=== PATIENT | female | born 1980 | race Caucasian/White ===

== ENCOUNTER 2018-04-04 13:27 | Inpatient (IN) | payer OTHER ==
[~2018-04-04] VITALS: Ht 160 cm; Wt 73.0 kg
[2018-04-07] MEDS ORDERED: OXYTOCIN 30U/ 0.9% NaCL 500ML 500 ML IV ONE (20:46)
[2018-04-07] MEDS: D5%-LACTATED RINGERS 1,000 ML IV SCH (20:46)
[2018-04-07] MEDS ORDERED: OXYTOCIN 30U/ 0.9% NaCL 500ML 500 ML IV PRN (20:46)
[2018-04-07] MEDS ORDERED: PENICILLIN GK 5,000,000 UNITS in DEXTROSE 5% 100 ML IVPB ONE (21:00)
[2018-04-07] MEDS ORDERED: TERBUTALINE 1 MG/ML, 1ML IVPush PRN (21:00)
[2018-04-07] MEDS ORDERED: ONDANSETRON 2MG/ML, 2ML IVPush PRN (21:00)
[2018-04-07] MEDS ORDERED: MISOPROSTOL 25 MCG TABLET VG PRN (21:00)
[2018-04-07] MEDS ORDERED: CALCIUM CARBONATE 500 MG TAB.CHEW PO PRN (21:00)
[2018-04-07] MEDS ORDERED: FENTANYL PF 100 MCG/2ML IV PRN (21:00)
[2018-04-07 21:20] LABS: BASOPHILS # (AUTO) 0.03 x10^3/uL (0-0.1); BASOPHILS % (AUTO) 0 % (0-1); EOSINOPHILS # (AUTO) 0.03 x10^3/uL (0-0.4); EOSINOPHILS % (AUTO) 0 % (1-7); LYMPHOCYTES # (AUTO) 2.14 x10^3/uL (1-3.4); LYMPHOCYTES % (AUTO) 19 % (22-44); MD NO; MEAN CORPUSCULAR HEMOGLOBIN 32.4 pg (27.0-34.8); MEAN CORPUSCULAR HGB CONC 34.5 g/dL (32.4-35.8); MONOCYTES # (AUTO) 1.01 x10^3/uL (0.2-0.8); MONOCYTES % (AUTO) 9 % (2-9); NEUTROPHILS # (AUTO) 8.31 x10^3/uL (1.8-6.8); NEUTROPHILS % (AUTO) 72 % (42-75); PLATELET COUNT 147 x10^3/uL (130-400); RED BLOOD COUNT 4.22 x10^6/uL (3.82-5.3); RED CELL DISTRIBUTION WIDTH 13.1 % (9.6-15.2)
[2018-04-07] MEDS: LACTATED RINGERS 1,000 ML IV SCH (21:29)
[2018-04-07] MEDS ORDERED: MISOPROSTOL 25 MCG TABLET ONE (22:04)
[2018-04-08] MEDS ORDERED: NEWBORN KIT ONE (01:28)
[2018-04-08] MEDS ORDERED: FENTANYL PF 100 MCG/2ML ONE ×5 (01:37→18:11)
[2018-04-08] MEDS: FENTANYL PF 100 MCG/2ML IVPush PRN ×2 (01:49→18:16)
[2018-04-08] MEDS: PENICILLIN GK 2,500,000 UNITS in DEXTROSE 5% 100 ML IVPB SCH ×6 (01:50→21:00)
[2018-04-08] MEDS ORDERED: FENTANYL/BUPIV./NS/PF 250 ML EPIDCONT SCH (01:57)
[2018-04-08] MEDS ORDERED: LACTATED RINGERS 1,000 ML IVBOLUS PRN (02:00)
[2018-04-08] MEDS ORDERED: FENTANYL PF 500 MCG, BUPIVACAINE/PF 0.5%, 30ML 62.5 ML in SODIUM CHLORIDE 0.9% 177.5 ML EPIDCONT SCH (02:30)
[2018-04-08] MEDS ORDERED: BUPIVACAINE 0.25% ONE (02:31)
[2018-04-08] MEDS ORDERED: LIDOCAINE 1%-EPI 1:100K, 20ML ONE (02:39)
[2018-04-08] MEDS: LACTATED RINGERS 1,000 ML IV SCH ×8 (03:01→20:46)
[2018-04-08] MEDS ORDERED: OXYTOCIN 30U/ 0.9% NaCL 500ML 500 ML ONE ×2 (07:11→15:23)
[2018-04-08 07:30] VITALS: BP 131/75
[2018-04-08] MEDS: D5%-LACTATED RINGERS 1,000 ML IV SCH ×3 (12:46→20:46)
[2018-04-08] MEDS ORDERED: MISOPROSTOL 200 MCG TABLET ONE (15:22)
[2018-04-08] MEDS ORDERED: LIDOCAINE 1%, 20ML ONE (15:22)
[2018-04-08] MEDS ORDERED: SODIUM CITRATE/CITRIC ACID 30 ML UDC ONE (17:18)
[2018-04-08] MEDS ORDERED: METOCLOPRAMIDE 5 MG/ML, 2ML ONE (17:18)
[2018-04-08] MEDS ORDERED: LABETALOL 5MG/ML, 20ML IV PRN (18:00)
[2018-04-08] MEDS ORDERED: ONDANSETRON 2MG/ML, 2ML IVPush PRN (18:00)
[2018-04-08] MEDS ORDERED: FENTANYL PF 100 MCG/2ML IV PRN (18:00)
[2018-04-08] MEDS ORDERED: MIDAZOLAM 1 MG/ML, 2ML IV PRN (18:00)
[2018-04-08] MEDS ORDERED: PROMETHAZINE 25 MG/ML, 1ML IV PRN (18:00)
[2018-04-08] MEDS ORDERED: EPHEDRINE 50 MG/ML, 1ML IVPush PRN (18:00)
[2018-04-08] MEDS ORDERED: HYDROcodone/APAP 7.5-325MG/15ML UDC PO PRN (18:00)
[2018-04-08] MEDS ORDERED: MEPERIDINE/PF 25MG/0.5ML IVPush PRN (18:00)
[2018-04-08] MEDS ORDERED: OXYcodone 5 MG/5 ML ORAL.SOL UDC PO PRN (18:00)
[2018-04-08] MEDS ORDERED: hydrALAzine 20 MG/ML, 1ML IV PRN (18:00)
[2018-04-08] MEDS ORDERED: HYDROmorphone 2 MG/ML, 1ML IVPush PRN (18:00)
[2018-04-08] MEDS ORDERED: ONDANSETRON 2MG/ML, 2ML ONE (18:01)
[2018-04-08] MEDS ORDERED: SUCCINYLCHOLINE 20 MG/ML, 10ML ONE (18:01)
[2018-04-08] MEDS ORDERED: CEFAZOLIN 1,000 MG ONE (18:01)
[2018-04-08] MEDS ORDERED: PROPOFOL 10 MG/ML, 20ML ONE (18:01)
[2018-04-08] MEDS ORDERED: EPHEDRINE 50 MG/ML, 1ML ONE (18:01)
[2018-04-08] MEDS ORDERED: KETOROLAC 30 MG/1 ML ONE (18:01)
[2018-04-08] MEDS ORDERED: PHENYLEPHRINE 10 MG/ML ONE (18:01)
[2018-04-08] MEDS ORDERED: DEXAMETHASONE 4 MG/ML, 1ML ONE (18:01)
[2018-04-08] MEDS ORDERED: OXYTOCIN 10 UNITS/ML, 1ML ONE (18:01)
[2018-04-08] MEDS: OXYTOCIN 30U/ 0.9% NaCL 500ML 500 ML IV SCH (18:27)
[2018-04-08] MEDS ORDERED: ACETAMINOPHEN 325 MG TABLET PO PRN ×3 (18:30)
[2018-04-08] MEDS: KETOROLAC 30 MG/1 ML IV SCH (18:30)
[2018-04-08] MEDS ORDERED: METHYLERGONOVINE 0.2 MG/ML IM PRN (18:30)
[2018-04-08] MEDS ORDERED: BISACODYL 10 MG SUPP PR PRN (18:30)
[2018-04-08] MEDS ORDERED: SIMETHICONE 80 MG CHEW TAB PO PRN (18:30)
[2018-04-08] MEDS ORDERED: MEASLES,MUMPS&RUBELLA VACC/PF 0.5 ML SQ-VACC PRN (18:30)
[2018-04-08] MEDS ORDERED: ONDANSETRON 2MG/ML, 2ML IV PRN (18:30)
[2018-04-08] MEDS ORDERED: GLYCERIN ADULT SUPP PR PRN (18:30)
[2018-04-08] MEDS ORDERED: METOCLOPRAMIDE 5 MG/ML, 2ML IV PRN (18:30)
[2018-04-08] MEDS ORDERED: CALCIUM CARBONATE 500 MG TAB.CHEW PO PRN (18:30)
[2018-04-08] MEDS ORDERED: CARBOPROST TROMETHAMINE 250 MCG/ML, 1ML IM PRN (18:30)
[2018-04-08] MEDS ORDERED: DIPH,PERTUSS(ACELL),TET VAC/PF NC IM-VACC PRN (18:30)
[2018-04-08] MEDS ORDERED: MEPERIDINE/PF 50 MG/ML IM PRN (18:30)
[2018-04-08] MEDS ORDERED: MISOPROSTOL 200 MCG TABLET PR PRN (18:30)
[2018-04-08] MEDS ORDERED: morphine SULFATE/PF 1 MG/ML, 10ML ONE (19:03)
[2018-04-08 22:00] VITALS: BP 105/66
[2018-04-09 02:00] VITALS: BP 106/66
[2018-04-09] MEDS: LACTATED RINGERS 1,000 ML IV SCH ×5 (02:27→18:27)
[2018-04-09] MEDS: KETOROLAC 30 MG/1 ML IV SCH ×4 (02:46→21:46)
[2018-04-09 03:33] LABS: MEAN CORPUSCULAR HEMOGLOBIN 32.5 pg (27.0-34.8); MEAN CORPUSCULAR HGB CONC 34.8 g/dL (32.4-35.8); MEAN CORPUSCULAR VOLUME 93.2 fL (80-100); MEAN PLATELET VOLUME 10.1 fL (7.4-10.4); PLATELET COUNT 128 x10^3/uL (130-400); RED BLOOD COUNT 3.49 x10^6/uL (3.82-5.3)
[2018-04-09 03:58] LABS: BASOPHILS % (AUTO) 0 % (0-1); EOSINOPHILS % (AUTO) 0 % (1-7); LYMPHOCYTES # (AUTO) 0.92 x10^3/uL (1-3.4); LYMPHOCYTES % (AUTO) 5 % (22-44); MD SCAN; MONOCYTES % (AUTO) 2 % (2-9); NEUTROPHILS # (AUTO) 17.87 x10^3/uL (1.8-6.8); NEUTROPHILS % (AUTO) 93 % (42-75)
[2018-04-09] MEDS: OXYTOCIN 30U/ 0.9% NaCL 500ML 500 ML IV SCH ×2 (04:27→14:27)
[2018-04-09 05:15] VITALS: BP 108/67
[2018-04-09 07:35] VITALS: BP 110/72
[2018-04-09] MEDS: PRENATAL VIT/IRON/FA 1 EACH TABLET PO SCH (07:39)
[2018-04-09] MEDS: DOCUSATE 100 MG CAPSULE PO PRN ×2 (07:39→20:24)
[2018-04-09 12:00] VITALS: BP 111/69
[2018-04-09] MEDS: OXYcodone/APAP 5/325MG TABLET PO PRN (20:24)
[2018-04-09 21:00] VITALS: BP 110/63
[2018-04-10] MEDS: LACTATED RINGERS 1,000 ML IV SCH ×6 (00:27→20:27)
[2018-04-10] MEDS: OXYTOCIN 30U/ 0.9% NaCL 500ML 500 ML IV SCH ×3 (00:27→20:27)
[2018-04-10] MEDS: KETOROLAC 30 MG/1 ML IV SCH ×3 (03:53→17:24)
[2018-04-10] MEDS: PRENATAL VIT/IRON/FA 1 EACH TABLET PO SCH (08:28)
[2018-04-10] MEDS: OXYcodone/APAP 5/325MG TABLET PO PRN ×3 (08:28→23:36)
[2018-04-10] MEDS: DOCUSATE 100 MG CAPSULE PO PRN ×2 (08:28→23:36)
[2018-04-10 08:30] VITALS: BP 101/67
[2018-04-10] MEDS ORDERED: KETOROLAC 30 MG/1 ML ONE (17:18)
[2018-04-10 20:20] VITALS: BP 122/79
[2018-04-10] MEDS: IBUPROFEN 600 MG TABLET PO PRN (23:36)
[2018-04-11] MEDS: LACTATED RINGERS 1,000 ML IV SCH ×2 (02:27→06:27)
[2018-04-11] MEDS: OXYcodone/APAP 5/325MG TABLET PO PRN ×2 (03:24→07:57)
[2018-04-11] MEDS: IBUPROFEN 600 MG TABLET PO PRN ×2 (05:21→11:30)
[2018-04-11] MEDS: OXYTOCIN 30U/ 0.9% NaCL 500ML 500 ML IV SCH (06:27)
[2018-04-11] MEDS: DOCUSATE 100 MG CAPSULE PO PRN (07:57)
[2018-04-11] MEDS: PRENATAL VIT/IRON/FA 1 EACH TABLET PO SCH (07:57)
[2018-04-11 08:15] VITALS: BP 115/76
[2018-04-11] MEDS ORDERED: IBUP-1222 PO ×2 (09:22→09:27)
[2018-04-11] MEDS ORDERED: OXYC-302 PO (09:23)
== END 2018-04-11 12:16 | disposition home or self-care (01) | DRG 788 ==
LOC: LDIP 04-07 20:09 → 2NW 04-08 21:46
PROVIDERS: ADMIT Obstetrics & Gynecology; ATTEND Obstetrics & Gynecology
PROC: 10D00Z1 Extraction of Products of Conception, Low, Open Approach (ICD-10-PCS; principal; 2018-04-08)
PROC: 10H07YZ Insertion of Other Device into Products of Conception, Via Natural or Artificial Opening (ICD-10-PCS; 2018-04-08)
DX: O99.824 Streptococcus B carrier state complicating childbirth (principal); O48.0 Post-term pregnancy; O62.1 Secondary uterine inertia; O77.0 Labor and delivery complicated by meconium in amniotic fluid; Z3A.40 40 weeks gestation of pregnancy; Z37.0 Single live birth
CPT/HCPCS: 36415; J7121; 59025; 82803; 85025; 86850; 86900; 99211; G0378; J0690; J1100; J1885; J2175; J2274; J2405; J2540; J2704; J3010; J3490; G0463; J0330; J2370; J2590; J7050; J7120

== ENCOUNTER 2020-05-25 05:37 | Inpatient (IN) | payer OTHER ==
[~2020-05-25] VITALS: Ht 160 cm; Wt 72.7 kg
[~2020-05-25 05:37] MED LIST: IBUP-1222 PO; OXYC1TAB14 PO
[2020-05-25 05:50] VITALS: BP 120/70
[2020-05-25] MEDS ORDERED: LACTATED RINGERS 1,000 ML IV SCH (06:00)
[2020-05-25] MEDS ORDERED: METOCLOPRAMIDE 5 MG/ML, 2ML IV ONE (06:00)
[2020-05-25] MEDS ORDERED: LACTATED RINGERS 1,000 ML IVBOLUS ONE (06:00)
[2020-05-25] MEDS ORDERED: SODIUM CITRATE/CITRIC ACID 30 ML UDC PO ONE (06:00)
[2020-05-25] MEDS ORDERED: PREN1TAB62 PO (06:02)
[2020-05-25 06:06] LABS: BASOPHILS % (AUTO) 1 % (0-1); EOSINOPHILS % (AUTO) 0 % (1-7); LYMPHOCYTES % (AUTO) 27 % (22-44); MEAN CORPUSCULAR HEMOGLOBIN 30.3 pg (27.0-34.8); MEAN CORPUSCULAR HGB CONC 33.9 g/dL (32.4-35.8); MEAN PLATELET VOLUME 9.7 fL (7.4-10.4); MONOCYTES % (AUTO) 8 % (2-9); NEUTROPHILS % (AUTO) 63 % (42-75); PLATELET COUNT 186 x10^3/uL (130-400); RED CELL DISTRIBUTION WIDTH 13.9 % (9.6-15.2)
[2020-05-25 06:07] LABS: MD NO
[2020-05-25] MEDS ORDERED: NEWBORN KIT ONE (06:24)
[2020-05-25] MEDS ORDERED: METOCLOPRAMIDE 5 MG/ML, 2ML ONE (06:24)
[2020-05-25] MEDS ORDERED: OXYTOCIN 30U/ 0.9% NaCL 500ML 500 ML ONE (06:24)
[2020-05-25] MEDS ORDERED: SODIUM CITRATE/CITRIC ACID 15 ML UDC ONE (06:25)
[2020-05-25] MEDS ORDERED: morphine SULFATE/PF 0.5 MG/ML, 10ML ONE ×2 (07:40→12:25)
[2020-05-25] MEDS ORDERED: WATER-INJECTION,STERILE 10 ML IV ONE ×4 (07:41→12:25)
[2020-05-25] MEDS ORDERED: DEXAMETHASONE 4 MG/ML, 1ML ONE ×2 (07:41→12:25)
[2020-05-25] MEDS ORDERED: ONDANSETRON 2MG/ML, 2ML ONE ×2 (07:41→12:25)
[2020-05-25] MEDS ORDERED: OXYTOCIN 10 UNITS/ML, 1ML ONE ×2 (07:41→12:25)
[2020-05-25] MEDS ORDERED: CEFAZOLIN 1,000 MG ONE ×2 (07:41→12:25)
[2020-05-25] MEDS ORDERED: KETOROLAC 30 MG/1 ML ONE ×2 (07:41→12:25)
[2020-05-25] MEDS ORDERED: PHENYLEPHRINE 10 MG/ML ONE ×2 (07:56→12:34)
[2020-05-25] MEDS ORDERED: EPHEDRINE 50 MG/ML, 1ML ONE (07:58)
[2020-05-25] MEDS ORDERED: MISOPROSTOL 200 MCG TABLET SL PRN (09:00)
[2020-05-25] MEDS ORDERED: METHYLERGONOVINE 0.2 MG/ML IM PRN (09:00)
[2020-05-25] MEDS: LACTATED RINGERS 1,000 ML IV SCH ×4 (09:00→19:00)
[2020-05-25] MEDS ORDERED: DIPH,PERTUSS(ACELL),TET VAC/PF NC IM-VACC PRN (09:00)
[2020-05-25] MEDS: DOCUSATE 100 MG CAPSULE PO SCH ×2 (09:00→20:16)
[2020-05-25] MEDS ORDERED: OXYcodone IR 5MG TABLET PO PRN (09:00)
[2020-05-25] MEDS ORDERED: ONDANSETRON 2MG/ML, 2ML IV PRN (09:00)
[2020-05-25] MEDS ORDERED: SIMETHICONE 80 MG CHEW TAB PO PRN (09:00)
[2020-05-25] MEDS ORDERED: CALCIUM CARBONATE 500 MG TAB.CHEW PO PRN (09:00)
[2020-05-25] MEDS ORDERED: ACETAMINOPHEN 325 MG TABLET PO PRN (09:00)
[2020-05-25] MEDS ORDERED: MORPHINE SULFATE 4 MG/ML, 1ML IVPush PRN (09:00)
[2020-05-25] MEDS: PRENATAL VIT/IRON/FA 1 EACH TABLET PO SCH (09:00)
[2020-05-25] MEDS ORDERED: METOCLOPRAMIDE 5 MG/ML, 2ML IV PRN (09:00)
[2020-05-25] MEDS: OXYTOCIN 30U/ 0.9% NaCL 500ML 500 ML IV SCH ×2 (09:23→19:00)
[2020-05-25 11:05] VITALS: BP 114/71
[2020-05-25] MEDS: OXYcodone/APAP 5/325MG TABLET PO PRN ×2 (12:19→17:53)
[2020-05-25] MEDS: KETOROLAC 30 MG/1 ML IV SCH ×2 (14:23→15:00)
[2020-05-25 16:05] VITALS: BP 105/64
[2020-05-25 16:05] LABS: BASOPHILS % (AUTO) 0 % (0-1); EOSINOPHILS % (AUTO) 0 % (1-7); LYMPHOCYTES % (AUTO) 6 % (22-44); MEAN CORPUSCULAR HEMOGLOBIN 29.9 pg (27.0-34.8); MEAN CORPUSCULAR HGB CONC 33.4 g/dL (32.4-35.8); MEAN PLATELET VOLUME 9.7 fL (7.4-10.4); MONOCYTES % (AUTO) 3 % (2-9); NEUTROPHILS % (AUTO) 91 % (42-75); PLATELET COUNT 179 x10^3/uL (130-400); RED CELL DISTRIBUTION WIDTH 13.7 % (9.6-15.2)
[2020-05-25 16:07] LABS: MD NO
[2020-05-25] MEDS ORDERED: IBUPROFEN 600 MG TABLET ONE (20:12)
[2020-05-25 20:16] VITALS: BP 116/66
[2020-05-26 00:04] VITALS: BP 107/62
[2020-05-26] MEDS: OXYcodone IR 5MG TABLET PO PRN (00:09)
[2020-05-26] MEDS: LACTATED RINGERS 1,000 ML IV SCH ×7 (01:00→23:38)
[2020-05-26] MEDS: IBUPROFEN 600 MG TABLET PO PRN ×4 (02:14→20:16)
[2020-05-26] MEDS ORDERED: IBUPROFEN 200 MG TABLET PO PRN ×2 (02:30→09:00)
[2020-05-26] MEDS: OXYTOCIN 30U/ 0.9% NaCL 500ML 500 ML IV SCH ×3 (04:08→23:38)
[2020-05-26 04:18] VITALS: BP 112/62
[2020-05-26] MEDS: OXYcodone/APAP 5/325MG TABLET PO PRN ×4 (05:13→19:40)
[2020-05-26 08:00] VITALS: BP 110/72
[2020-05-26] MEDS: PRENATAL VIT/IRON/FA 1 EACH TABLET PO SCH (08:10)
[2020-05-26] MEDS: DOCUSATE 100 MG CAPSULE PO SCH ×2 (08:10→19:39)
[2020-05-26] MEDS ORDERED: IBUPROFEN 800 MG TABLET PO PRN (09:00)
[2020-05-26 20:00] VITALS: BP 109/71
[2020-05-27] MEDS: IBUPROFEN 600 MG TABLET PO PRN ×3 (01:26→13:17)
[2020-05-27] MEDS: OXYcodone/APAP 5/325MG TABLET PO PRN (01:26)
[2020-05-27 07:20] VITALS: BP 102/67
[2020-05-27] MEDS: OXYcodone IR 5MG TABLET PO PRN ×2 (07:28→13:18)
[2020-05-27] MEDS: PRENATAL VIT/IRON/FA 1 EACH TABLET PO SCH (07:28)
[2020-05-27] MEDS: DOCUSATE 100 MG CAPSULE PO SCH (07:28)
[2020-05-27] MEDS ORDERED: IBUP-1222 PO (11:31)
[2020-05-27] MEDS ORDERED: DOCU-131 PO (11:31)
[2020-05-27] MEDS ORDERED: OXYC1TAB14 PO (11:31)
== END 2020-05-27 13:40 | disposition home or self-care (01) | DRG 788 ==
LOC: LDIP 05:37 → 2NW 10:53
PROVIDERS: ADMIT Obstetrics & Gynecology; ATTEND Obstetrics & Gynecology
PROC: 10D00Z1 Extraction of Products of Conception, Low, Open Approach (ICD-10-PCS; principal; 2020-05-25)
DX: O34.211 Maternal care for low transverse scar from previous cesarean delivery (principal); Z20.822 Contact with and (suspected) exposure to COVID-19; Z37.0 Single live birth; Z3A.39 39 weeks gestation of pregnancy; Z80.1 Family history of malignant neoplasm of trachea, bronchus and lung; Z80.41 Family history of malignant neoplasm of ovary; Z80.8 Family history of malignant neoplasm of other organs or systems
CPT/HCPCS: 36415; 85025; 86592; 86850; 86900; 87806; G0378; J0690; J1100; J1885; J2274; J2405; G0475; J2370; J2590; J2765; J7120; U0003

== ENCOUNTER → 2020-09-28 | Outpatient (CLI) | payer OTHER ==
[~2020-09-28] MED LIST changes: +DOCU-131 PO; +PREN1TAB62 PO
== END | disposition home or self-care (01) ==
LOC: CFH 07:28
PROVIDERS: ATTEND Obstetrics & Gynecology
DX: N63.20 Unspecified lump in the left breast, unspecified quadrant (principal)
CPT/HCPCS: 76642